=== PATIENT | male | born 1945 | race Caucasian/White ===

== ENCOUNTER 2023-01-20 19:38 | Inpatient (IN) | payer MEDICARE, BC ==
[2023-01-20] MEDS ORDERED: Lactated Ringers 1,000 ML IV SCH (20:15)
[2023-01-20 20:57] LABS: ESTIMATED GFR 87 mL/min (>60)
[2023-01-20] MEDS ORDERED: fentaNYL 100 MCG/2 ML SDV IVPUSH ONE (21:24)
[2023-01-20 22:02] LABS: CORONAVIRUS COVID-19 NAA NEGATIVE (NEGATIVE)
[2023-01-21] MEDS ORDERED: cefTRIAXone 1 GM in Sodium Chloride 0.9% 50 ML IV SCH ×2
[2023-01-21] MEDS ORDERED: Ondansetron 4 MG Tab.DIS PO PRN (00:36)
[2023-01-21] MEDS ORDERED: Sodium Chloride 0.9% 1,000 ML IV SCH (00:36)
[2023-01-21] MEDS ORDERED: Melatonin 3 MG Tab PO PRN (00:36)
[2023-01-21] MEDS ORDERED: Ondansetron 4 MG/2 ML SDV IV PRN (00:36)
[2023-01-21] MEDS ORDERED: fentaNYL 50 MCG/ML SDV IVPUSH PRN (00:36)
[2023-01-21] MEDS ORDERED: Doxycycline 100 MG in Sodium Chloride 0.9% 100 ML IV SCH (01:00)
[2023-01-21] MEDS: traMADol 50 MG Tab PO PRN ×4 (01:06→22:25)
[2023-01-21] MEDS: Acetaminophen 325 MG Tab PO PRN ×2 (07:19→14:17)
[2023-01-21] MEDS ORDERED: glipiZIDE 2.5 MG Tab.ER PO SCH (09:00)
[2023-01-21] MEDS: Losartan 50 MG Tab PO SCH (09:54)
[2023-01-21] MEDS: metFORMIN 500 MG Tab PO SCH ×2 (09:54→17:10)
[2023-01-21] MEDS: Lactobacillus Rhamnosus GG (Probiotic) Cap PO SCH ×2 (09:56→20:25)
[2023-01-21] MEDS: Aspirin 325 MG Tab.EC PO SCH (09:56)
[2023-01-21] MEDS: atorvaSTATin 10 MG Tab PO SCH (09:57)
[2023-01-21] MEDS: amLODIPine 5 MG Tab PO SCH (09:57)
[2023-01-21] MEDS: Enoxaparin 40 MG/0.4 ML Syringe SUBCUT SCH (09:57)
[2023-01-21] MEDS: Ferrous Sulfate 325 MG Tab PO SCH (11:39)
[2023-01-21] MEDS: GLIPIZIDE 2.5 MG PO SCH ×2 (12:12→20:25)
[2023-01-22] MEDS: traMADol 50 MG Tab PO PRN ×4 (07:00→21:23)
[2023-01-22] MEDS: metFORMIN 500 MG Tab PO SCH ×2 (07:00→16:05)
[2023-01-22] MEDS: Aspirin 325 MG Tab.EC PO SCH (08:28)
[2023-01-22] MEDS: Lactobacillus Rhamnosus GG (Probiotic) Cap PO SCH ×2 (08:28→21:23)
[2023-01-22] MEDS: atorvaSTATin 10 MG Tab PO SCH (08:28)
[2023-01-22] MEDS: Losartan 50 MG Tab PO SCH (08:28)
[2023-01-22] MEDS: Enoxaparin 40 MG/0.4 ML Syringe SUBCUT SCH (08:29)
[2023-01-22] MEDS: amLODIPine 5 MG Tab PO SCH (08:29)
[2023-01-22] MEDS: GLIPIZIDE 2.5 MG PO SCH ×2 (08:29→21:24)
[2023-01-22] MEDS: Ferrous Sulfate 325 MG Tab PO SCH (11:33)
[2023-01-23] MEDS: traMADol 50 MG Tab PO PRN ×3 (03:51→17:24)
[2023-01-23] MEDS: GLIPIZIDE 2.5 MG PO SCH ×2 (08:03→20:00)
[2023-01-23] MEDS: Aspirin 325 MG Tab.EC PO SCH (08:03)
[2023-01-23] MEDS: metFORMIN 500 MG Tab PO SCH ×2 (08:04→17:24)
[2023-01-23] MEDS: amLODIPine 5 MG Tab PO SCH (08:04)
[2023-01-23] MEDS: Losartan 50 MG Tab PO SCH (08:04)
[2023-01-23] MEDS: Lactobacillus Rhamnosus GG (Probiotic) Cap PO SCH ×2 (08:04→20:00)
[2023-01-23] MEDS: atorvaSTATin 10 MG Tab PO SCH (08:05)
[2023-01-23] MEDS: Enoxaparin 40 MG/0.4 ML Syringe SUBCUT SCH (08:05)
[2023-01-23] MEDS: Acetaminophen 325 MG Tab PO PRN ×2 (11:15→17:24)
[2023-01-23] MEDS: Magnesium Hydroxide 400 MG/5 ML Susp 30 ML Cup PO PRN (11:15)
[2023-01-23] MEDS: Ferrous Sulfate 325 MG Tab PO SCH (11:20)
[2023-01-24] MEDS: traMADol 50 MG Tab PO PRN ×3 (02:50→13:06)
[2023-01-24] MEDS: metFORMIN 500 MG Tab PO SCH (08:56)
[2023-01-24] MEDS: GLIPIZIDE 2.5 MG PO SCH (08:56)
[2023-01-24] MEDS: Losartan 50 MG Tab PO SCH (08:57)
[2023-01-24] MEDS: Aspirin 325 MG Tab.EC PO SCH (08:57)
[2023-01-24] MEDS: Enoxaparin 40 MG/0.4 ML Syringe SUBCUT SCH (08:58)
[2023-01-24] MEDS: Lactobacillus Rhamnosus GG (Probiotic) Cap PO SCH (08:58)
[2023-01-24] MEDS: Magnesium Hydroxide 400 MG/5 ML Susp 30 ML Cup PO PRN (08:58)
[2023-01-24] MEDS: amLODIPine 5 MG Tab PO SCH (08:58)
[2023-01-24] MEDS: atorvaSTATin 10 MG Tab PO SCH (08:59)
[2023-01-24] MEDS: Ferrous Sulfate 325 MG Tab PO SCH (13:06)
== END 2023-01-24 13:15 | disposition home health service (06) | DRG 536 ==
LOC: JP.ED 19:38 → JP.MS 23:21
PROVIDERS: ADMIT Internal Medicine; ATTEND Internal Medicine
DX: S72.001A Fracture of unspecified part of neck of right femur, initial encounter for closed fracture (principal); M97.01XA Periprosthetic fracture around internal prosthetic right hip joint, initial encounter; E11.9 Type 2 diabetes mellitus without complications; I10 Essential (primary) hypertension; Z96.643 Presence of artificial hip joint, bilateral; Z96.653 Presence of artificial knee joint, bilateral; W19.XXXA Unspecified fall, initial encounter; I45.10 Unspecified right bundle-branch block; Z20.822 Contact with and (suspected) exposure to COVID-19; W18.31XA Fall on same level due to stepping on an object, initial encounter; Y92.89 Other specified places as the place of occurrence of the external cause; Z87.891 Personal history of nicotine dependence; Z79.84 Long term (current) use of oral hypoglycemic drugs; Z79.899 Other long term (current) drug therapy; Z79.82 Long term (current) use of aspirin
CPT/HCPCS: 0241U; 36415; 70450; 71045; 71045-26; 73502-RT; 73552-26-LT; 73552-RT; 73562-26-RT; 73562-RT; 80048; 80053; 81001; 83605; 84145; 85025; 85027; 86140; 87040; 93306; 96361; 96374; 97116-GP; 97162-GP; 97165-GO; 97530-GP; 97535-GO; 99285; 99285-25; A9270-GY; J0696; J1650; J3010; J3490; J7030; J7120